=== PATIENT | female | born 1965 | race Caucasian/White ===

== ENCOUNTER 2024-03-19 13:49 | Inpatient (IN) | payer OTHER ==
[~2024-03-19] VITALS: Ht 167.6 cm; Wt 85.2 kg
[2024-03-19 14:43] LABS: Basophils # (auto) 0 10 ^3/uL (0-0.2); Basophils % (auto) 0.6 % (0.0-2.0); Eosinophils # (auto) 0.1 10 ^3/uL (0-0.8); Eosinophils % (auto) 0.7 % (0.0-7.0); Hematocrit 49.3 % (36.0-46.0); Hemoglobin 16.7 g/dL (12.2-16.2); Lymphocytes # (auto) 2.4 10 ^3/uL (0.4-5.4); Mean Corpuscular Hemoglobin 30.2 pg (28.0-32.0); Mean Corpuscular Hgb Conc. 33.9 g/dL (32.0-36.0); Mean Corpuscular Volume 88.9 fL (80.0-100.0); Monocytes # (auto) 0.5 10 ^3/uL (0-1.3); Monocytes % (auto) 6.7 % (0.0-12.0); Neutrophils # (auto) 3.9 10 ^3/uL (1.6-8.6); Nucleated Red Blood Cells % 0.1 %; Red Blood Cells 5.54 10^6/uL (4.0-5.20); Red Cell Distribution Width 15.2 % (11.8-14.3); White Blood Cell 6.9 10^3/uL (4.4-10.8)
[2024-03-19 14:51] LABS: Chloride 104 mmol/L (98-107); Potassium 3.3 mmol/L (3.5-5.1); Sodium 137 mmol/L (136-145)
[2024-03-19 14:52] LABS: Anion Gap 8 (5-15); Carbon Dioxide 25 mmol/L (20-30)
[2024-03-19 14:53] LABS: Calcium 10.5 mg/dL (8.7-10.4)
[2024-03-19 14:57] LABS: BUN/Creatinine Ratio 6.5 (10.0-20.0); Blood Urea Nitrogen 7 mg/dL (9-23); Glucose 117 mg/dL (74-106)
[2024-03-19] MEDS: ALBUTEROL SULF 2.5 MG/0.5ML(0.5%) NEB SOLN NEB ONE (15:27)
[2024-03-19] MEDS: IPRATROPIUM BROM 0.5 MG/2.5ML INH SOL NEB ONE (15:27)
[2024-03-19 16:05] LABS: Urine Bacteria FEW /hpf (None Seen); Urine Blood 2+ /uL (Negative); Urine Clarity Turbid (Clear); Urine Color Yellow (Yellow); Urine Hyaline Cast FEW /lpf (0 - 2); Urine Mucus FEW (None Seen); Urine Protein, UAD 2+ (Negative); Urine Specific Gravity 1.019 (1.001-1.035); Urine Urobilinogen 2 mg/dL (Negative); Urine WBC 10 /hpf (0 - 5); Urine pH 6.5 (5.0-9.0)
[2024-03-19] MEDS ORDERED: NITROGLYCERIN 0.4 MG SL TAB SL PRN ×2 (16:15→18:00)
[2024-03-19] MEDS: dilTIAZem 25 MG/5 ML VIAL IV ONE (16:15)
[2024-03-19] MEDS ORDERED: MORPHINE SULFATE INJ 2 MG/ml SYRG IV PRN ×2 (16:15→18:00)
[2024-03-19] MEDS ORDERED: hydrALAZINE HCL 20 MG/ML VL IV PRN (16:15)
[2024-03-19] MEDS ORDERED: IPRATROPIUM BROM 0.5 MG/2.5ML INH SOL NEB PRN (16:15)
[2024-03-19] MEDS ORDERED: ALBUTEROL SULF 2.5 MG/0.5ML(0.5%) NEB SOLN NEB PRN (16:15)
[2024-03-19] MEDS ORDERED: ACETAMINOPHEN 325 MG TAB PO PRN (16:15)
[2024-03-19] MEDS ORDERED: ONDANSETRON HCL 4 MG/2 ML VIAL IV PRN ×2 (16:15→18:00)
[2024-03-19] MEDS ORDERED: cefTRIAXone 1GM/50ML D5W 50 ML IV SCH (16:20)
[2024-03-19] MEDS: LORazepam 2MG/ML-1ML VIAL IV ONE (16:49)
[2024-03-19] MEDS ORDERED: AZITHROMYCIN 500MG/ 250ML 250 ML IV SCH (17:00)
[2024-03-19] MEDS: FUROSEMIDE 20 MG TAB PO ONE (17:05)
[2024-03-19 17:37] VITALS: PULSE 103; RESP 22; O2SAT 96
[2024-03-19 18:29] LABS: LDL Cholesterol 220 mg/dL (< 100); Triglycerides 112 mg/dL (< 150)
[2024-03-19 18:31] LABS: Cholesterol 299 mg/dL (< 200); HDL Cholesterol 68 mg/dL (40-59)
[2024-03-19] MEDS: SOD CHL 0.45% 1,000 ML IV SCH (18:40)
[2024-03-19 19:00] LABS: Lactic Acid w/Reflex 2.1 mmol/L (0.4-2.0)
[2024-03-19 19:30] VITALS: PULSE 87; RESP 18; O2SAT 97
[2024-03-19] MEDS: SODIUM CHLORIDE 0.9% 500 ML IV ONE (20:45)
[2024-03-19] MEDS: cefTRIAXone 1GM/50ML D5W 50 ML IV ONE (20:53)
[2024-03-19] MEDS ORDERED: METOPROLOL TARTRATE 25 MG TAB PO SCH (22:00)
[2024-03-19] MEDS ORDERED: hydroCHLOROthiazide 25 MG TAB PO SCH (22:00)
[2024-03-19] MEDS ORDERED: LOSARTAN POTASSIUM 25 MG TAB PO SCH (22:00)
[2024-03-19] MEDS: METOPROLOL TARTRATE 25 MG TAB PO SCH (22:06)
[2024-03-20 01:29] LABS: Lactic Acid w/Reflex 2.2 mmol/L (0.4-2.0)
[2024-03-20 04:18] LABS: Basophils # (auto) 0 10 ^3/uL (0-0.2); Basophils % (auto) 0.6 % (0.0-2.0); Eosinophils # (auto) 0.2 10 ^3/uL (0-0.8); Eosinophils % (auto) 2.2 % (0.0-7.0); Hematocrit 44.2 % (36.0-46.0); Hemoglobin 14.8 g/dL (12.2-16.2); Lymphocytes # (auto) 2.1 10 ^3/uL (0.4-5.4); Lymphocytes % (auto) 30.3 % (10.0-50.0); Mean Corpuscular Hemoglobin 29.2 pg (28.0-32.0); Mean Corpuscular Hgb Conc. 33.5 g/dL (32.0-36.0); Monocytes # (auto) 0.9 10 ^3/uL (0-1.3); Monocytes % (auto) 12.1 % (0.0-12.0); Neutrophils # (auto) 3.9 10 ^3/uL (1.6-8.6); Neutrophils % (auto) 54.8 % (37.0-80.0); Nucleated Red Blood Cells % 0.1 %; Red Blood Cells 5.08 10^6/uL (4.0-5.20); Red Cell Distribution Width 15.4 % (11.8-14.3)
[2024-03-20 04:37] LABS: Alanine Aminotransferase 22 U/L (7-40); Alkaline Phosphatase 81 U/L (46-116); Anion Gap 7 (5-15); Aspartate Aminotransferase 17 U/L (13-40); BUN/Creatinine Ratio 10.6 (10.0-20.0); Bilirubin, Total 0.6 mg/dL (0.2-1.0); Blood Urea Nitrogen 13 mg/dL (9-23); Calcium 9.6 mg/dL (8.5-10.1); Carbon Dioxide 28 mmol/L (20-30); Chloride 104 mmol/L (98-107); Glucose 101 mg/dL (74-106); Potassium 3.8 mmol/L (3.5-5.1); Sodium 139 mmol/L (136-145); Total Protein 6.5 g/dL (5.7-8.2)
[2024-03-20] MEDS: SPIRONOLACTONE 25 MG TAB PO SCH (05:57)
[2024-03-20 06:24] LABS: Amphetamine Screen, Urine Neg (NEGATIVE)
[2024-03-20 06:25] LABS: Barbiturate Scree,Urine Neg (NEGATIVE); Benzodiazephine Screen, Urine Neg (NEGATIVE); Cannabinoid Screen, Urine Neg (NEGATIVE); Cocaine Screen, Urine Neg (NEGATIVE); Opiate Scree,Urine Neg (NEGATIVE); Phencyclidine Screen, Urine Neg (NEGATIVE)
[2024-03-20 07:20] VITALS: PULSE 52; RESP 18; O2SAT 98
[2024-03-20] MEDS: cefTRIAXone 1GM/50ML D5W 50 ML IV SCH (09:15)
[2024-03-20] MEDS: ACETAMINOPHEN 325 MG TAB PO PRN (09:54)
[2024-03-20] MEDS ORDERED: FUROSEMIDE 40 MG TAB PO SCH (10:00)
[2024-03-20] MEDS: LORazepam 2MG/ML-1ML VIAL IV ONE (11:11)
[2024-03-20] MEDS: amLODIPine BESYLATE 5 MG TAB PO ONE (12:37)
[2024-03-20 17:15] VITALS: PULSE 75; RESP 19
[2024-03-20] MEDS ORDERED: ALPR1TAB2 PO (17:57)
[2024-03-20] MEDS ORDERED: LOSA-534 PO (17:57)
[2024-03-20 20:00] VITALS: PULSE 65; RESP 20; O2SAT 95
[2024-03-20 21:00] VITALS: BP 164/101; PULSE 58; RESP 22; TEMP 97.6; O2SAT 97
[2024-03-20] MEDS: ATORVASTATIN 20 MG TAB PO SCH (22:54)
[2024-03-20] MEDS: LORazepam 0.5 MG TAB PO ONE (22:55)
[2024-03-20] MEDS: hydrALAZINE HCL 20 MG/ML VL IV PRN (22:58)
[2024-03-20] MEDS: HYDROcodone-ACET 5/325MG TAB PO PRN (23:03)
[2024-03-21] VITALS (11 sets, daily range): BP systolic 141–167; BP diastolic 75–104; PULSE 65–106; RESP 16–24; TEMP 97.6–98.1; O2SAT 94–98
[2024-03-21] MEDS: ENOXAPARIN SOD 40 MG/0.4 ML SYRINGE SC SCH (08:30)
[2024-03-21] MEDS: SERTRALINE HCL 50 MG TAB PO SCH (08:30)
[2024-03-21] MEDS: amLODIPine BESYLATE 5 MG TAB PO SCH (08:31)
[2024-03-21] MEDS: IOHEXOL 350 MG/ML 100ML IJ ONE (09:08)
[2024-03-21] MEDS: hydrALAZINE HCL 25 MG TAB PO SCH (17:58)
[2024-03-21] MEDS: ALBUTEROL SULF 2.5 MG/0.5ML(0.5%) NEB SOLN NEB SCH (19:43)
[2024-03-21] MEDS: busPIRone HCL 10 MG TAB PO SCH (21:37)
[2024-03-21] MEDS ORDERED: ALPRAZolam 0.25 MG TAB PO SCH (22:00)
[2024-03-22] VITALS (13 sets, daily range): BP systolic 132–168; BP diastolic 67–102; PULSE 69–98; RESP 17–20; TEMP 96.6–98.6; O2SAT 94–99
[2024-03-22] MEDS: MORPHINE SULFATE INJ 2 MG/ml SYRG IV ONE (07:38)
[2024-03-22] MEDS: IOHEXOL 350 MG/ML 100ML IJ ONE (09:04)
[2024-03-22] MEDS: CYCLOBENZAPRINE HCL 10 MG TAB PO ONE (12:06)
[2024-03-22] MEDS ORDERED: LIDOCAINE 2% JELLY 11ml (GLYDO) UR ONE (17:15)
[2024-03-22] MEDS: CYCLOBENZAPRINE HCL 10 MG TAB PO SCH (20:02)
[2024-03-22] MEDS: hydroCHLOROthiazide 25 MG TAB PO SCH (21:43)
[2024-03-23] VITALS (9 sets, daily range): BP systolic 134–168; BP diastolic 77–90; PULSE 62–71; RESP 16–22; TEMP 98.2–98.7; O2SAT 92–96
[2024-03-23 06:33] LABS: Anion Gap 5 (5-15); Basophils # (auto) 0 10 ^3/uL (0-0.2); Basophils % (auto) 0.7 % (0.0-2.0); Calcium 9.6 mg/dL (8.5-10.1); Carbon Dioxide 27 mmol/L (20-30); Chloride 104 mmol/L (98-107); Eosinophils # (auto) 0.3 10 ^3/uL (0-0.8); Eosinophils % (auto) 5.3 % (0.0-7.0); Hematocrit 46.3 % (36.0-46.0); Hemoglobin 15.2 g/dL (12.2-16.2); Lymphocytes # (auto) 1.7 10 ^3/uL (0.4-5.4); Lymphocytes % (auto) 29.1 % (10.0-50.0); Mean Corpuscular Hemoglobin 29.5 pg (28.0-32.0); Mean Corpuscular Hgb Conc. 32.7 g/dL (32.0-36.0); Mean Corpuscular Volume 90.1 fL (80.0-100.0); Monocytes # (auto) 0.6 10 ^3/uL (0-1.3); Monocytes % (auto) 10.4 % (0.0-12.0); Neutrophils # (auto) 3.3 10 ^3/uL (1.6-8.6); Neutrophils % (auto) 54.5 % (37.0-80.0); Nucleated Red Blood Cells % 0.1 %; Potassium 4.2 mmol/L (3.5-5.1); Red Blood Cells 5.14 10^6/uL (4.0-5.20); Red Cell Distribution Width 15.7 % (11.8-14.3); Sodium 136 mmol/L (136-145)
[2024-03-23 06:39] LABS: BUN/Creatinine Ratio 12.1 (10.0-20.0); Blood Urea Nitrogen 14 mg/dL (9-23); Glucose 95 mg/dL (74-106)
[2024-03-23] MEDS: METHOCARBAMOL 500 MG TAB PO PRN (14:48)
[2024-03-24] VITALS (8 sets, daily range): BP systolic 132–159; BP diastolic 68–108; PULSE 65–105; RESP 16–24; TEMP 97.6–97.9; O2SAT 94–96
== END 2024-03-24 19:24 | DRG 189 ==
LOC: EDUNIT# 13:49 → EDBD 13:49 → ER 13:59 → UNDOADMIN 16:15 → TELE 16:15 → TELE-CENTR 03-20 17:15
PROVIDERS: ADMIT Hospitalist; ATTEND Hospitalist
DX: J96.20 Acute and chronic respiratory failure, unspecified whether with hypoxia or hypercapnia (principal); J44.1 Chronic obstructive pulmonary disease with (acute) exacerbation; E87.20 Acidosis, unspecified; F33.1 Major depressive disorder, recurrent, moderate; R62.7 Adult failure to thrive; F41.9 Anxiety disorder, unspecified; I10 Essential (primary) hypertension; M62.838 Other muscle spasm; I16.0 Hypertensive urgency; Z68.27 Body mass index [BMI] 27.0-27.9, adult; Z87.891 Personal history of nicotine dependence; Z99.81 Dependence on supplemental oxygen; Z63.4 Disappearance and death of family member
CPT/HCPCS: 36415; 70450; 71045; 71275; 80048; 80053; 80061; 80307; 81001; 83036; 83605; 83880; 84439; 84443; 85025; 85379; 87040; 87086; 93005; 93306; 94640; 96361; 96365; 96366; 96375; 96376; 97163; G0378